=== PATIENT | male | born 1960 | race Caucasian/White ===

== ENCOUNTER → 2016-07-11 | Outpatient (CLI) | payer OTHER ==
[2016-07-11 11:09] LABS: BLOOD UREA NITROGEN 11 mg/dl (7-18); BUN/CREATININE RATIO 12.5 (10-20); CHLORIDE 108 mmol/L (98-107); CREATININE 0.91 mg/dl (0.60-1.40); GLUCOSE,FASTING 98 mg/dl (70-99); SODIUM 143 mmol/L (136-145)
[2016-07-11 11:10] LABS: ALT/SGPT 115 U/L (12-78); AST/SGOT 56 U/L (15-37); CALCIUM 8.5 mg/dl (8.5-10.1); CARBON DIOXIDE 30 mmol/L (21-32)
[2016-07-11 11:12] LABS: ALB/GLOB RATIO 1.2 (0.9-2); ALKALINE PHOSPHATASE 74 U/L (45-117); CHOLESTEROL 151 mg/dl (0-200); CHOLESTEROL/HDL RATIO 3.8; HDL CHOLESTEROL 40 mg/dl; LDL CHOLESTEROL CALCULATED 87 mg/dl; TRIGLYCERIDES 119 mg/dl (0-150); VERY LOW DENSITY LIPOPROT CALC 24 mg/dl
== END | disposition home or self-care (01) ==
LOC: C.LABBC 08:25
PROVIDERS: ATTEND Physician Assistant
DX: Z00.00 Encounter for general adult medical examination without abnormal findings (principal)

== ENCOUNTER → 2016-07-11 | Outpatient (CLI) | payer OTHER ==
[2016-07-11 09:52] LABS: BASO % 1.5 %; BASO ABS # 0.07 K/uL (0-0.2); COMPLETE YES; EOS % 1.5 %; HEMATOCRIT 44.3 % (42-52); LYMPH % 38.3 %; LYMPH ABS # 1.78 K/uL (1.2-3.4); MEAN CELL VOLUME 87.4 fL (80-100); MEAN CORPUSCULAR HGB CONC 35.4 g/dl (32-36); MEAN PLATELET VOLUME 11.5 fL (7.4-10.4); MONO % 7.1 %; NEUT % 51.6 %; PLATELET COUNT 222 K/uL (130-400); RED BLOOD COUNT 5.07 M/uL (4.7-6.1); WHITE BLOOD COUNT 4.65 K/uL (4.8-10.8)
[2016-07-11 10:17] LABS: ALT/SGPT 117 U/L (12-78); AST/SGOT 60 U/L (15-37); BLOOD UREA NITROGEN 11 mg/dl (7-18); BUN/CREATININE RATIO 9.7 (10-20); CALCIUM 8.9 mg/dl (8.5-10.1); CARBON DIOXIDE 31 mmol/L (21-32); CHLORIDE 108 mmol/L (98-107); GLUCOSE 94 mg/dl (70-99); SODIUM 144 mmol/L (136-145)
[2016-07-11 10:20] LABS: ALB/GLOB RATIO 1.1 (0.9-2); ALKALINE PHOSPHATASE 78 U/L (45-117)
[2016-07-16 02:19] LABS: CHROMOGRANIN A 49 ng/mL (< OR = 15); SEROTONIN** TC 29851 230 ng/mL (56-244)
== END | disposition home or self-care (01) ==
LOC: C.LAB 09:07
PROVIDERS: ATTEND Internal Medicine Hematology
DX: C7A.019 Malignant carcinoid tumor of the small intestine, unspecified portion (principal)

== ENCOUNTER → 2016-07-15 | Outpatient (CLI) | payer OTHER ==
[2016-07-17 12:29] LABS: 5-HIAA 6.1 mg/24 h (<=6.0)
== END | disposition home or self-care (01) ==
LOC: C.LABSPEC 10:44
PROVIDERS: ATTEND Internal Medicine Hematology
DX: C7A.019 Malignant carcinoid tumor of the small intestine, unspecified portion (principal)